=== PATIENT | male | born 1995 | race American Indian/Alaskan Native ===

== ENCOUNTER 2017-02-13 13:33 | Emergency (ER) | payer MEDICAID, OTHER ==
[2017-02-13 13:58] VITALS: BP 146/93
--- NOTE | 2017-02-13 14:24 | EDM.PDOC ---
[id number] 4d BLADDER INFECTION KIDNEY STONES Time Seen by Provider: 02/13/17 14:00 Source of Information: Reports: Patient, Family History Limitations: Reports: No limitations - History of Present Illness INITIAL COMMENTS - FREE TEXT/NARRATIVE: 21-year-old male has generalized malaise, back pain, and nausea for the past 2- 3 days. He was in the clinic yesterday and was worked up and everything was negative but his mom thinks he's a little worse today so brought him in. He looks fine. Left Flank Pain Score (Numeric/FACES): 7 - Related Data Allergies Allergy/AdvReac Type Severity Reaction Status Date / Time amoxicillin [Amoxicillin] Allergy Rash Verified 02/13/17 13:58 Home Meds: Home Meds Esomeprazole Magnesium [Nexium] 20 mg PO DAILY 06/30/15 [History] Past Medical History Gastrointestinal History: Reports: GERD Genitourinary History: Reports: Renal calculus Other Musculoskeletal History: LEG,SKULL,ARM,COLAR BONE,FINGERS,TOES, femur Neurological History: Reports: Migraines Psychiatric History: Reports: Anxiety, Depression Other Dermatologic History: acne - Past Surgical History GI Surgical History: Reports: Appendectomy Musculoskeletal Surgical History: Reports: Other (see below) Other Musculoskeletal Surgeries/Procedures:: femur repair Social & Family History - Tobacco Use Smoking Status *Q: Never Smoker Years of Tobacco use: 1 Used Tobacco, but Quit: No Second Hand Smoke Exposure: No - Alcohol Use Days Per Week of Alcohol Use: 0 - Recreational Drug Use Recreational Drug Use: No ED ROS GENERAL - Review of Systems Review Of Systems: See Below Constitutional: Reports: malaise. Denies: fever, chills HEENT: Reports: No symptoms Respiratory: Denies: Shortness of Breath Cardiovascular: Denies: Chest pain GI/Abdominal: Reports: Abdominal pain, Diarrhea, Nausea : Reports: flank pain Skin: Reports: no symptoms Neurological: Reports: No Symptoms Psychiatric: Reports: No symptoms ED EXAM, GENERAL - Physical Exam Exam: See Below Exam Limited By: No limitations General Appearance: alert, no apparent distress Eye Exam: bilateral eye: normal inspection Head: atraumatic Respiratory/Chest: no respiratory distress, lungs clear Cardiovascular: regular rate, rhythm GI/Abdominal: Soft, Tender (Reaccessed some tenderness to palpation along the left abdomen but no guarding or rebound) Back Exam: CVA tenderness (L) (A small amount of palpation tenderness to the left CVA and paraspinous area). No: CVA tenderness (R) Neurological: alert, oriented Psychiatric: normal affect, normal mood Skin Exam: Warm, Dry Course - Vital Signs Last Recorded V/S: Last Vital Signs Temp 97.3 F 02/13/17 13:57 Pulse 71 02/13/17 13:57 Resp 16 02/13/17 13:57 BP 146/93 H 02/13/17 13:57 Pulse Ox 97 02/13/17 13:57 - Re-Assessments/Exams Free Text/Narrative Re-Assessment/Exam: 02/13/17 14:39 I reviewed all his clinic labs from yesterday including a urine, CBC and BMP were all normal. We did run a CT of his abdomen and pelvis with no contrast and it was normal as well. Patient was reassured Departure - Departure Time of Disposition: 15:26 Disposition: Home, Self-Care 01 Condition: good Clinical Impression: Left flank pain, Abdominal pain of unknown cause - Discharge Information Instructions: Flank Pain, Llpa-se-Awzz Referrals: Luis Kelley MD [Primary Care Provider] - Forms: ED Department Discharge Care Plan Goals: Increase diet and activity as tolerated. Ibuprofen or naproxen should help. Return if worsening such as fever or increased pain.
--- NOTE | 2017-02-13 14:36 | CT ---
Abdomen pelvis CT. History: Left flank pain. Technique: Unenhanced axial images were obtained from the lung bases extending through the abdomen a nd pelvis. Coronal images were reconstructed. Total DLP: 741 Comparison: March 2016. Findings: The study is limited due to the lack of contrast. There is a nonobstructing 2 mm stone in the superior pole of the left kidney. A 2 mm stone of the lo wer pole left kidney is no longer demonstrated. There is no hydronephrosis or hydroureter. The right kidney is unremarkable. There appears to be uniform thickening of the bladder wall. The bladder is not distended. The lower lung gonsales are unremarkable. The liver, gallbladder, pancreas, spleen are unremarkable. T here is no large or small bowel distention. The skeletal structures are unremarkable. Impression: 1. Nonobstructing stone superior pole left kidney. 2. The bladder lopes appear thickened. Recommend correlation for cystitis. Underdistention of the bl adder may also account for the finding.
== END 2017-02-13 15:00 | disposition home or self-care (01) ==
LOC: JP.ED 13:33
DX: R10.9 Unspecified abdominal pain (principal); K21.9 Gastro-esophageal reflux disease without esophagitis; F41.9 Anxiety disorder, unspecified; F32.9 Major depressive disorder, single episode, unspecified; G43.909 Migraine, unspecified, not intractable, without status migrainosus; Z90.49 Acquired absence of other specified parts of digestive tract; Z88.1 Allergy status to other antibiotic agents
CPT/HCPCS: 74176; 74176-26; 99284-25

== ENCOUNTER 2017-02-15 06:51 | Day surgery (SDC) | payer MEDICAID, OTHER ==
[2017-02-15] MEDS ORDERED: Glycopyrrolate 0.2 MG/ML 2 ML SYRINGE IVPUSH ONE (07:30)
[2017-02-15] MEDS ORDERED: Dextrose 5%-Lactated Ringers 1,000 ML IV SCH (07:30)
[2017-02-15] MEDS ORDERED: fentaNYL 100 MCG/2 ML SDV ONE (08:13)
[2017-02-15] MEDS ORDERED: Midazolam 1 MG/ML 2 ML SDV ONE (08:13)
[2017-02-15] MEDS ORDERED: Propofol 200 MG/20 ML SDV ONE (08:13)
[2017-02-15] MEDS ORDERED: Ondansetron 4 MG/2 ML SDV ONE (08:15)
[2017-02-15] MEDS ORDERED: Pantoprazole 40 MG Vial IVPUSH ONE (08:50)
[2017-02-15 09:53] VITALS: BP 121/60
--- NOTE | 2017-02-18 16:39 | OR ---
DATE OF PROCEDURE: 02/15/2017 PREOPERATIVE DIAGNOSIS: Upper abdominal pain. POSTOPERATIVE DIAGNOSES: Upper abdominal pain with some mild focal pre-pyloric gastritis. PROCEDURE: Upper gastrointestinal endoscopy with antral biopsies for CLOtest. ANESTHESIA: IV sedation. INDICATIONS FOR PROCEDURE: This is a 21-year-old presenting with some ongoing upper abdominal pain, it appears to have increased somewhat after eating. The pain is in the upper abdomen and it also radiates to the back to a significant degree. He has been on Nexium 40 mg a day. The plan is to proceed with upper GI endoscopy with biopsies as indicated. Potential risks including bleeding and perforation were discussed, and the patient wishes to proceed. DETAILS OF PROCEDURE: The patient was taken to the operating room and placed in left lateral decubitus position. IV sedation was administered, after which the upper GI endoscope was passed orally through the length of the esophagus, into the stomach with retroflexion view of the fundus, thereafter through the pyloric channel, and into the proximal duodenum. FINDINGS: Included normal hypopharynx, larynx, upper esophageal sphincters, and esophageal body. At the EG junction, there was no significant inflammation or hiatal hernia. The proximal stomach was unremarkable. There was some patchy reddened areas in the pre-pyloric area without erosions or ulcers. The pyloric channel, duodenum, and the junction of the third and fourth portions were unremarkable. The scope was then withdrawn. The biopsy was obtained from the antrum and sent for CLOtest for Helicobacter pylori. Minimal bleeding from the biopsy site was seen and the procedure was then concluded. The patient will be given some additional Protonix 40 mg in the PAR. He will otherwise continue the Nexium 40 mg a day. If the CLOtest is positive, we will treat him with one of the anti Helicobacter pylori regimens, otherwise with radiation to the back and relatively minimal findings on upper endoscopy, we will obtain a CCK-stimulated HIDA scan on Saturday to look at the gallbladder function. We will see him immediately after the HIDA scan is completed this coming Saturday. Giuseppe Pizarro MD /[id number]
== END 2017-02-15 10:00 | disposition home or self-care (01) ==
LOC: JP.SDS 06:51
PROVIDERS: ATTEND Surgery
DX: K29.60 Other gastritis without bleeding (principal); Z88.1 Allergy status to other antibiotic agents; K21.9 Gastro-esophageal reflux disease without esophagitis
CPT/HCPCS: 43239; 87081; C9113; J2250; J2405; J2704; J3010; J7042

== ENCOUNTER 2017-02-19 09:49 | Day surgery (SDC) | payer MEDICAID, OTHER ==
[~2017-02-19 09:49] MED LIST: Bupivacaine 0.5%/EPINEPHrine 1:200,000 50 ML MDV ONE
[2017-02-19] MEDS: Dextrose 5%-Lactated Ringers 1,000 ML IV SCH ×2 (10:29→14:08)
[2017-02-19] MEDS ORDERED: HYDROmorphone/Normal Saline 15 MG/30 ML PCA IV PRN (11:12)
[2017-02-19] MEDS ORDERED: Naloxone 0.4 MG/ML SDV IVPUSH PRN (11:12)
[2017-02-19] MEDS ORDERED: fentaNYL 250 MCG/5 ML SDV ONE ×2 (12:36→13:17)
[2017-02-19] MEDS ORDERED: Dexamethasone 4 MG/ML SDV ONE (12:37)
[2017-02-19] MEDS ORDERED: Ondansetron 4 MG/2 ML SDV ONE (12:37)
[2017-02-19] MEDS ORDERED: Rocuronium 50 MG/5 ML Vial ONE (12:37)
[2017-02-19] MEDS ORDERED: Succinylcholine/Normal Saline 200 MG/10 ML Syringe ONE (12:37)
[2017-02-19] MEDS ORDERED: Neostigmine Methylsulfate 1 MG/ML 5 ML Syringe ONE (12:37)
[2017-02-19] MEDS ORDERED: Propofol 200 MG/20 ML SDV ONE (12:37)
[2017-02-19] MEDS: cefOXitin 2 GM in Sodium Chloride 0.9% 50 ML IV ONE ×2 (12:49→13:58)
[2017-02-19] MEDS ORDERED: Dextrose 5%-Lactated Ringers 1,000 ML IV SCH (15:00)
[2017-02-19] MEDS ORDERED: Acetaminophen/HYDROcodone 325-5 MG Tab PO PRN (16:00)
[2017-02-19] MEDS ORDERED: Pantoprazole 40 MG Vial IVPUSH SCH (16:00)
[2017-02-19] MEDS ORDERED: Ondansetron 4 MG/2 ML SDV IVPUSH PRN (16:00)
[2017-02-19] MEDS: cefOXitin 2 GM in Sodium Chloride 0.9% 50 ML IV SCH ×2 (18:02→23:52)
[2017-02-19] MEDS ORDERED: diphenhydrAMINE 25 MG Cap PO PRN (20:22)
[2017-02-20] MEDS ORDERED: HYDROmorphone 1 MG/ML Syringe IVPUSH ONE (01:30)
[2017-02-20] MEDS ORDERED: Acetaminophen/oxyCODONE 325-5 MG Tab PO PRN (01:31)
[2017-02-20] MEDS ORDERED: HYDROmorphone 1 MG/ML Syringe ONE (01:42)
[2017-02-20] MEDS: Acetaminophen/oxyCODONE 325-5 MG Tab PO PRN ×3 (01:46→09:32)
[2017-02-20] MEDS: cefOXitin 2 GM in Sodium Chloride 0.9% 50 ML IV SCH (05:59)
[2017-02-20 07:39] VITALS: BP 120/61
[2017-02-20] MEDS ORDERED: TRUVADA PO SCH (09:00)
[2017-02-20] MEDS ORDERED: Ondansetron 4 MG Tab.DIS PO ONE (11:03)
--- NOTE | 2017-02-21 15:30 | DISCH ---
ADMISSION DIAGNOSES: 1. Abdominal pain. 2. Biliary dyskinesia. DISCHARGE DIAGNOSES: Status post laparoscopic cholecystectomy. HISTORY: Nicho Villar is a 21-year-old male who presented to the emergency room with abdominal pain. After preoperative evaluation and discussion of possible risks and possible complications, he wished to proceed with surgical procedure. HOSPITAL COURSE: Nicho had his surgery on 02/19/2017. He had no operative complications. On postop day #1, his activity was good, his pain was well managed, and he was able to be discharged to home. PHYSICAL EXAMINATION: GENERAL: Nicho Villar is a 21-year-old male. VITAL SIGNS: Stable. HEENT: Negative. NECK: Supple. HEART: Regular rate and rhythm. LUNGS: Clear. ABDOMEN: Dressings dry and intact. Abdominal binder is on. EXTREMITIES: Without peripheral edema. DISPOSITION: Discharged to home. CONDITION: Stable and improving. FOLLOWUP: With Malgorzata Orozco PA-C, on 02/26/2017 at 10:00 am. HOME MEDICATIONS: Percocet 5/325 mg 1 to 2 every 4 hours p.r.n. pain, #30. To continue taking Tylenol 650 mg q.6 hours p.r.n. lesser pain, Truvada 200 mg/300 mg one tablet daily, and Nexium 40 mg oral daily. DISCHARGE DIET: Usual diet as tolerated. Drink 8 to 10 glasses of water a day. ACTIVITY: No lifting greater than 10 pounds for 2 weeks. Driving after discharge; do not drive while on pain medication. May shower. DISCHARGE INSTRUCTIONS: Notify provider if any fever, increased pain, nausea, or vomiting. Wound incision care, keep site clean and dry. Wear abdominal binder for 2 weeks and then as tolerated. Special instruction, use incentive spirometer 10 times every hour while awake for 2 weeks.
--- NOTE | 2017-02-25 14:17 | OR ---
DATE OF PROCEDURE: 02/19/2017 PREOPERATIVE DIAGNOSIS: Biliary dyskinesia. POSTOPERATIVE DIAGNOSES: 1. Biliary dyskinesia. 2. Umbilical hernia. OPERATIVE PROCEDURE: 1. Laparoscopic cholecystectomy (50843). 2. Laparoscopic repair of umbilical hernia (74272). ANESTHESIA: General. INDICATION FOR PROCEDURE: A 21-year-old presenting here with some ongoing upper abdominal pain and nausea. He earlier underwent an upper endoscopy, which showed some quite minor gastritis and therefore, he underwent a CCK-stimulated HIDA scan. The CCK injection caused quite precise reproduction of his discomfort and nausea and therefore, he is to undergo a cholecystectomy at this time. Potential risks of the procedure were reviewed with the patient, including bleeding, infection, injury to underlying viscera, and possibility of persistent symptoms postoperatively were all reviewed, and the patient wishes to proceed. DETAILS OF PROCEDURE: The patient was taken to the operating room and placed in a supine position. After general endotracheal anesthesia was induced, the abdomen was prepped and draped. A transverse epigastric incision was made and the peritoneal cavity entered under direct vision with an Optiview trocar inflated to 15 mmHg pressure with CO2. Laparoscope was then reinserted. No underlying trocar insertion site injuries were seen. As one peered down toward the umbilicus, the patient was noted to have a small umbilical hernia. A transverse infraumbilical incision was made and camera port 12-mm trocar was placed through the midportion of the hernia, which measured about 1 cm in diameter. A 5-mm right abdominal trocar was then also placed and the upper abdomen was then examined. The patient noted to have a distended and edematous gallbladder with edema particularly to be noted around the area of the cystohepatic triangle and gallbladder neck as one retracted this anteriorly and laterally dissection began at the level of the gallbladder neck with Harmonic scalpel, then carried around the gallbladder neck and cystic duct junction. Once that area was well-delineated as well as adjacent cystic artery, both structures were clipped 3 times proximally and once distally at the gallbladder and cystic duct junction and artery were divided. The gallbladder was then dissected off the gallbladder bed using Harmonic scalpel and delivered through the upper midline port. The gallbladder was noted to have a mucosal cholesterolosis as well as some fine granules within the gallbladder bile. The dissection was inspected and no problems were noted. The patient was felt not to need a drain. The camera was brought back up to the epigastric site and after removal of the trocar through the hernia at the umbilicus, this was then closed with a series of 0 Vicryl stitch. Once these were in place, the remaining trocars were removed. The peritoneal cavity deflated and the umbilical hernia repaired six stitches were then tied, which resolved this satisfactorily. The patient had no muscular defect at the gastric site, so a stitch was not required at the fascia level and the skin at each incision closed with 5-0 Vicryl skin stitch. Dressing was applied. The patient was taken to the recovery room in satisfactory condition. Giuseppe Pizarro MD /[id number]
== END 2017-02-20 11:25 | disposition home or self-care (01) ==
LOC: JP.SDS 09:49 → UNDOADMIN 09:49 → JP.MS 09:49 → EDSTATUS 11:00 → JP.2SS 14:30 → JP.MS 14:30 → JP.2SS 14:30 → UNDODISIN 02-20 11:20 → JP.SDS 02-20 11:25
PROVIDERS: ATTEND Surgery
DX: K81.1 Chronic cholecystitis (principal); K21.9 Gastro-esophageal reflux disease without esophagitis; K42.9 Umbilical hernia without obstruction or gangrene; G43.909 Migraine, unspecified, not intractable, without status migrainosus; F41.9 Anxiety disorder, unspecified; F32.9 Major depressive disorder, single episode, unspecified; Z90.49 Acquired absence of other specified parts of digestive tract; Z88.0 Allergy status to penicillin; Z87.442 Personal history of urinary calculi; Z79.899 Other long term (current) drug therapy; Z98.890 Other specified postprocedural states
CPT/HCPCS: 36415; 47562; 49652; 82247; 84075; 85027; 88304; 94762; A9270; C9113; J0694; J1100; J1170; J2405; J2704; J3010; J7042; J7050

== ENCOUNTER 2017-02-24 18:55 | Emergency (ER) | payer MEDICAID, OTHER ==
[2017-02-24 19:29] VITALS: BP 137/81
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
== END 2017-02-24 19:56 | disposition home or self-care (01) ==
LOC: JP.ED 18:55
DX: G89.18 Other acute postprocedural pain (principal); H54.7 Unspecified visual loss; J45.909 Unspecified asthma, uncomplicated; Z90.49 Acquired absence of other specified parts of digestive tract; Z79.899 Other long term (current) drug therapy; Z88.1 Allergy status to other antibiotic agents
CPT/HCPCS: 99283

== ENCOUNTER 2017-05-11 11:35 | Emergency (ER) | payer MEDICAID, OTHER ==
[2017-05-11 12:05] VITALS: BP 156/84
[2017-05-11] MEDS ORDERED: Bacitracin Oint 1 GM U/D Packet TOP ONE (12:16)
--- NOTE | 2017-05-11 12:16 | EDM.PDOC ---
[id number] 4d CUT LEFT MIDDLE FINGER Time Seen by Provider: 05/11/17 12:00 Source of Information: Reports: Patient History Limitations: Reports: No Limitations - History of Present Illness INITIAL COMMENTS - FREE TEXT/NARRATIVE: 21-year-old male cut his left middle finger while cutting an onion. Onset: Today Duration: Hour(s): (Within the last hour and a half) Severity: Mild - Related Data Allergies Allergy/AdvReac Type Severity Reaction Status Date / Time amoxicillin [Amoxicillin] Allergy Rash Verified 05/11/17 11:57 Home Meds: Home Meds Esomeprazole Magnesium [Nexium] 40 mg PO DAILY 06/30/15 [History] Past Medical History HEENT History: Reports: Impaired Vision Respiratory History: Reports: Asthma Gastrointestinal History: Reports: Chronic Diarrhea, GERD Genitourinary History: Reports: Renal Calculus Musculoskeletal History: Reports: Fracture Other Musculoskeletal History: LEG,SKULL,ARM,COLAR BONE,FINGERS,TOES, femur Neurological History: Reports: Concussion, Migraines Psychiatric History: Reports: Anxiety, Depression Dermatologic History: Reports: Other (See Below) Other Dermatologic History: acne - Infectious Disease History Infectious Disease History: Reports: Chicken Pox - Past Surgical History HEENT Surgical History: Reports: Adenoidectomy, Tonsillectomy Respiratory Surgical History: Reports: None GI Surgical History: Reports: Cholecystectomy, EGD, Hernia Repair/Other Male Surgical History: Reports: None Neurological Surgical History: Reports: None Musculoskeletal Surgical History: Reports: Other (See Below) Other Musculoskeletal Surgeries/Procedures:: Reset femur Dermatological Surgical History: Reports: None Social & Family History - Tobacco Use Smoking Status *Q: Never Smoker Years of Tobacco use: 1 Packs/Tins Daily: 1 Used Tobacco, but Quit: Yes Month Tobacco Last Used: May Second Hand Smoke Exposure: No - Caffeine Use Caffeine Use: Reports: Coffee, Energy Drinks, Soda - Alcohol Use Days Per Week of Alcohol Use: 0 - Recreational Drug Use Recreational Drug Use: No ED ROS GENERAL - Review of Systems Review Of Systems: See Below Constitutional: Denies: Fever, Chills Respiratory: Denies: Shortness of Breath GI/Abdominal: Denies: Nausea, Vomiting ED EXAM, SKIN/RASH Exam: See Below Exam Limited By: No Limitations General Appearance: Alert, No Apparent Distress Respiratory/Chest: No Respiratory Distress Extremities: Other (Exam is otherwise limited to the left hand. The patient has a small avulsion/laceration of the radial side of the middle finger distally. There is a small piece of nail that is absent as well. The wound is shallow in no repair is necessary) Course - Vital Signs Last Recorded V/S: Last Vital Signs Temp 96.8 F 05/11/17 12:02 Pulse 65 05/11/17 12:02 Resp 14 05/11/17 12:02 BP 156/84 H 05/11/17 12:02 Pulse Ox 98 05/11/17 12:02 - Orders/Labs/Meds Meds: Medications Discontinued Medications Generic Name Dose Route Start Last Admin Trade Name Freq PRN Reason Stop Dose Admin Bacitracin 1 dose 05/11/17 12:16 05/11/17 12:27 Bacitracin Oint 1 Gm TOP 05/11/17 12:17 1 dose ONETIME ONE Administration - Re-Assessments/Exams Free Text/Narrative Re-Assessment/Exam: 05/11/17 12:14 The wound was covered with bacitracin, bandaged, and a small protective finger splint was supplied. Patient is sleeping wound clean while healing. Departure - Departure Time of Disposition: 12:27 Disposition: Home, Self-Care 01 Condition: Good Clinical Impression: Laceration of finger of left hand Qualifiers: Encounter type: initial encounter Finger: middle finger Damage to nail status: with damage Foreign body presence: without foreign body Qualified Code(s): S61.313A - Laceration without foreign body of left middle finger with damage to nail, initial encounter - Discharge Information Instructions: Laceration Care, Adult Referrals: Luis Kelley MD [Primary Care Provider] - Forms: ED Department Discharge Care Plan Goals: Keep wound covered and clean while healing. Wear splint for protection. Recheck if concerns of infection or not healing satisfactorily.
== END 2017-05-11 12:27 | disposition home or self-care (01) ==
LOC: JP.ED 11:35
DX: S61.313A Laceration without foreign body of left middle finger with damage to nail, initial encounter (principal); J45.909 Unspecified asthma, uncomplicated; K21.9 Gastro-esophageal reflux disease without esophagitis; F41.9 Anxiety disorder, unspecified; F32.9 Major depressive disorder, single episode, unspecified; Z90.49 Acquired absence of other specified parts of digestive tract; Z98.890 Other specified postprocedural states; Z88.1 Allergy status to other antibiotic agents; Z79.899 Other long term (current) drug therapy; W45.8XXA Other foreign body or object entering through skin, initial encounter
CPT/HCPCS: 99283

== ENCOUNTER 2020-05-01 20:08 | Emergency (ER) | payer BC, MEDICAID ==
--- NOTE | 2020-05-01 20:39 | EDM.PDOC ---
ED HPI GENERAL MEDICAL PROBLEM - General Chief Complaint: General Stated Complaint: MEDICAL [facility] Time Seen by Provider: 05/01/20 20:29 Source of Information: Reports: Patient, RN Notes Reviewed History Limitations: Reports: No Limitations - History of Present Illness INITIAL COMMENTS - FREE TEXT/NARRATIVE: 24-year-old gentleman presents emergency department today complaint of epigastric pain, he does have a history of a Camilla he has had difficulty with his Camilla, he has been dealing with epigastric pain for some time but however over the last couple days the pain has gotten significantly worse. He did have a panic attack earlier today but that now has resolved denies any nausea shortness of breath or chest pain Throat Pain Score (Numeric/FACES): 8 - Related Data Allergies Allergy/AdvReac Type Severity Reaction Status Date / Time amoxicillin [Amoxicillin] Allergy Rash Verified 05/11/17 11:57 clindamycin Allergy Diarrhea Verified 05/01/20 20:17 ketamine Allergy Hallucinati Verified 05/01/20 20:17 ons Penicillins Allergy Hives Verified 05/01/20 20:17 Home Meds: Home Meds Famotidine [Pepcid] 40 mg PO DAILY 05/01/20 [History] LORazepam [Lorazepam] 0.5 mg PO DAILY 05/01/20 [History] Past Medical History HEENT History: Reports: Impaired Vision Respiratory History: Reports: Asthma Gastrointestinal History: Reports: Chronic Diarrhea, GERD, Hiatal Hernia Genitourinary History: Reports: Renal Calculus Musculoskeletal History: Reports: Fracture Other Musculoskeletal History: LEG,SKULL,ARM,COLAR BONE,FINGERS,TOES, femur Neurological History: Reports: Concussion, Migraines Psychiatric History: Reports: Anxiety, Depression, Suicide Attempt, Suicidal Ideation Dermatologic History: Reports: Other (See Below) Other Dermatologic History: acne - Infectious Disease History Infectious Disease History: Reports: Chicken Pox - Past Surgical History HEENT Surgical History: Reports: Adenoidectomy, Tonsillectomy Respiratory Surgical History: Reports: None GI Surgical History: Reports: Appendectomy, Cholecystectomy, EGD, Hernia, Abdominal, Hernia Repair/Other Male Surgical History: Reports: None Neurological Surgical History: Reports: None Musculoskeletal Surgical History: Reports: Other (See Below) Other Musculoskeletal Surgeries/Procedures:: Reset femur Dermatological Surgical History: Reports: None Social & Family History - Tobacco Use Smoking Status *Q: Current Every Day Smoker Years of Tobacco use: 1 Packs/Tins Daily: 1 Used Tobacco, but Quit: No - Caffeine Use Caffeine Use: Reports: Energy Drinks - Alcohol Use Days Per Week of Alcohol Use: 3 Number of Drinks Per Day: 5 Total Drinks Per Week: 15 Date of Last Drink: 05/01/20 Time of Last Drink: 12:00 - Recreational Drug Use Recreational Drug Use: Yes Drug Use in Last 12 Months: No Recreational Drug Type: Reports: Marijuana/Hashish ED ROS GENERAL - Review of Systems Review Of Systems: See Below Constitutional: Reports: No Symptoms HEENT: Reports: No Symptoms Respiratory: Reports: No Symptoms Cardiovascular: Reports: No Symptoms GI/Abdominal: Reports: Abdominal Pain (Epigastric region). Denies: Constipation, Diarrhea, Nausea, Vomiting : Reports: No Symptoms ED EXAM, GENERAL - Physical Exam Exam: See Below Exam Limited By: No Limitations General Appearance: Alert, WD/WN, No Apparent Distress Respiratory/Chest: No Respiratory Distress, Lungs Clear, Normal Breath Sounds, No Accessory Muscle Use, Chest Non-Tender Cardiovascular: Regular Rate, Rhythm, No Murmur GI/Abdominal: Soft, No Organomegaly, No Distention, No Abnormal Bruit, Tender (Tender epigastric region) Course - Vital Signs Last Recorded V/S: Last Vital Signs Temp 99.0 F 05/01/20 20:11 Pulse 90 05/01/20 20:11 Resp 25 H 05/01/20 20:11 BP 142/89 H 05/01/20 20:11 Pulse Ox 100 05/01/20 20:11 - Orders/Labs/Meds Orders: Active Orders 24 hr Category Date Time Status Abdomen 1V Upright [CR] Urgent Exams 05/01/20 20:36 Taken Labs: Laboratory Tests 05/01/20 05/01/20 05/01/20 Range/Units 20:50 20:50 20:50 WBC 6.8 (4.5-11.0) K/uL RBC 4.69 (4.30-5.90) M/uL Hgb 15.3 H (12.0-15.0) g/dL Hct 43.1 (40.0-54.0) % MCV 92 (80-98) fL MCH 33 H (27-31) pg MCHC 36 (32-36) % Plt Count 272 (150-400) K/uL Neut % (Auto) 59 (36-66) % Lymph % (Auto) 29 (24-44) % Haines % (Auto) 10 H (2-6) % Eos % (Auto) 1 L (2-4) % Baso % (Auto) 1 (0-1) % Sodium 144 (140-148) mmol/L Potassium 3.2 L (3.6-5.2) mmol/L Chloride 104 (100-108) mmol/L Carbon Dioxide 27 (21-32) mmol/L Anion Gap 16.2 H (5.0-14.0) mmol/L BUN 8 (7-18) mg/dL Creatinine 0.8 (0.8-1.3) mg/dL Est Cr Clr Drug Dosing 144.84 mL/min Estimated GFR (MDRD) > 60 (>60) Glucose 103 (74-106) mg/dL Lactic Acid 2.5 H (0.4-2.0) mmol/L Calcium 8.1 L (8.5-10.1) mg/dL Total Bilirubin 0.6 (0.2-1.0) mg/dL AST 38 H D (15-37) U/L ALT 46 (12-78) U/L Alkaline Phosphatase 69 (46-116) U/L Troponin I < 0.017 (0.000-0.056) ng/mL Total Protein 7.0 (6.4-8.2) g/dL Albumin 3.9 (3.4-5.0) g/dL Globulin 3.1 (2.3-3.5) g/dL Albumin/Globulin Ratio 1.3 (1.2-2.2) Lipase 54 L (73-393) U/L Meds: Medications Discontinued Medications Generic Name Dose Route Start Last Admin Trade Name Freq PRN Reason Stop Dose Admin Fentanyl 50 mcg 05/01/20 21:51 05/01/20 22:01 Sublimaze IM 05/01/20 21:52 50 mcg ONETIME ONE Administration Departure - Departure Time of Disposition: 22:55 Disposition: Home, Self-Care 01 Condition: Fair Clinical Impression: Abdominal pain Qualifiers: Abdominal location: epigastric Qualified Code(s): R10.13 - Epigastric pain - Discharge Information Instructions: Abdominal Pain, Adult Referrals: PCP,None [Primary Care Provider] - Forms: ED Department Discharge Additional Instructions: Please call the [facility] in the morning for an appointment time with Dr. Pizarro, call or return to the emergency department worsening of symptoms Sepsis Event Note (ED) - Evaluation Sepsis Screening Result: No Definite Risk - Focused Exam Vital Signs: Vital Signs Temp Pulse Resp BP Pulse Ox 05/01/20 20:11 99.0 F 90 25 H 142/89 H 100 - My Orders Last 24 Hours: My Active Orders 05/01/20 20:36 Abdomen 1V Upright [CR] Urgent - Assessment/Plan Last 24 Hours: My Active Orders 05/01/20 20:36 Abdomen 1V Upright [CR] Urgent Plan: Assessment Acuity = acute Site and laterality = epigastric abdominal pain Etiology = unknown Manifestations = none Location of injury = Home Lab values = CBC unremarkable potassium slightly low at 3.2 consistent hypokalemia lactic acid elevated 2.5 consistent lactic acidosis AST slightly elevated 38 consistent with elevated liver enzymes troponin is negative c abdominal x-ray reveals a large amount of gas nonspecific pattern official read radiologist pending Plan I did review lab work x-ray results with him I did recommend further evaluation with a CT scan and further work-up but he declined he would prefer consultation with general surgery Dr. Pizarro therefore set up that consultation he can call tomorrow morning for an appointment This note was dictated using [employer] voice recognition software please call with any questions on syntax or grammar.
[2020-05-01] MEDS ORDERED: fentaNYL 100 MCG/2 ML SDV IM ONE (21:51)
[2020-05-02 01:41] VITALS: BP 132/85; PULSE 86
--- NOTE | 2020-05-02 11:27 | CR ---
Abdomen 1V Upright CLINICAL HISTORY: Epigastric pain FINDINGS: There are scattered air-filled loops of small bowel in a nonacute pattern. No free air is seen. There are surgical clips in the right upper quadrant. IMPRESSION: Nonacute intestinal gas pattern
== END 2020-05-01 23:02 | disposition home or self-care (01) ==
LOC: JP.ED 20:08
DX: R10.13 Epigastric pain (principal); K21.9 Gastro-esophageal reflux disease without esophagitis; F41.9 Anxiety disorder, unspecified; F32.9 Major depressive disorder, single episode, unspecified; F17.210 Nicotine dependence, cigarettes, uncomplicated; Z88.1 Allergy status to other antibiotic agents; Z88.0 Allergy status to penicillin; Z88.4 Allergy status to anesthetic agent; Z79.899 Other long term (current) drug therapy; Z90.49 Acquired absence of other specified parts of digestive tract; Z98.890 Other specified postprocedural states
CPT/HCPCS: 36415; 74018; 80053; 83605; 83690; 84484; 85025; 96372; 99284; J3010

== ENCOUNTER 2020-05-13 07:28 | Day surgery (SDC) | payer BC ==
[~2020-05-13 07:28] MED LIST changes: -Bupivacaine 0.5%/EPINEPHrine 1:200,000 50 ML MDV ONE; +Midazolam 1 MG/ML 2 ML SDV ONE; +Propofol 200 MG/20 ML SDV ONE; +fentaNYL 100 MCG/2 ML SDV ONE
[2020-05-13] MEDS ORDERED: Dextrose 5%-Lactated Ringers 1,000 ML IV SCH (08:00)
[2020-05-13] MEDS ORDERED: Glycopyrrolate 0.2 MG/ML 2 ML SDV IVPUSH ONE (09:15)
[2020-05-13] MEDS ORDERED: Propofol 200 MG/20 ML SDV ONE (09:39)
[2020-05-13 10:57] VITALS: BP 136/85; PULSE 70
--- NOTE | 2020-05-19 13:53 | OR ---
DATE OF PROCEDURE: 05/13/2020 SURGEON: Giuseppe Pizarro MD PREOPERATIVE DIAGNOSIS: Status post Camilla fundoplication this past fall with no significant improvement in symptoms. POSTOPERATIVE DIAGNOSES: 1. Slipped Camilla fundoplication with recurrent gastroesophageal reflux disease. 2. Mild antral gastritis. OPERATIVE PROCEDURE: Esophagogastroduodenoscopy with: 1. Biopsy of esophagogastric junction for histologic evaluation. 2. Biopsies of antrum for CLOtest. ANESTHESIA: IV sedation. INDICATION FOR PROCEDURE: This is a 24-year-old status post Camilla fundoplication performed in [place] this past fall. After the fundoplication patient says he experienced no significant dysphagia or relief of his heartburn symptoms. Plan is to proceed with upper GI endoscopy for evaluation. Potential risks of the procedure including bleeding and perforation were discussed, and the patient wishes to proceed. DETAILS OF PROCEDURE: The patient was taken to the operating room and placed in a left lateral decubitus position. IV sedation was administered, after which the upper GI endoscope was passed orally through the esophagus and into the stomach, with retroflexion view of the fundus, and thereafter through the pyloric channel and into the proximal duodenum. Findings included normal hypopharynx, larynx, upper esophageal sphincter, esophageal body. At the EG junction the patient had an obvious recurrence of hiatal hernia with prolapse of some of the stomach up into the chest. It was also evident that, at the area around and just below the esophagogastric junction, there was no compression effect, i.e. the Camilla appeared to have slipped down well onto the stomach, resulting in no significant barrier to reflux. Within the remainder of the stomach, the patient was noted to have some mild patchy redness in the antrum, otherwise pyloric channel and visualized portions of the duodenum were unremarkable. At this point, biopsies were obtained from esophagogastric junction and sent for histologic evaluation, along with the antrum for CLOtest. No bleeding from biopsy sites was seen, and the procedure was then concluded. Discussed with the patient and mother postoperatively, the plan will be to proceed with a revision of the Camilla fundoplication next week. Giuseppe Pizarro MD /[id number]
== END 2020-05-13 10:58 | disposition home or self-care (01) ==
LOC: JP.SDS 07:28
PROVIDERS: ATTEND Surgery
DX: K29.50 Unspecified chronic gastritis without bleeding (principal); K21.0 Gastro-esophageal reflux disease with esophagitis; K95.09 Other complications of gastric band procedure; Z88.6 Allergy status to analgesic agent
CPT/HCPCS: 43239; 87081; 88305; J2250; J2704; J3010; J3490; J7121

== ENCOUNTER 2020-05-17 06:31 | Inpatient (IN) | payer BC ==
[2020-05-17] MEDS ORDERED: Acetaminophen 500 MG Tab PO ONE (07:15)
[2020-05-17] MEDS ORDERED: Glycopyrrolate 0.2 MG/ML 5 ML MDV ONE (07:26)
[2020-05-17] MEDS ORDERED: fentaNYL 250 MCG/5 ML SDV ONE ×2 (07:26→09:53)
[2020-05-17] MEDS ORDERED: Succinylcholine 200 MG/10 ML MDV ONE (07:26)
[2020-05-17] MEDS ORDERED: Rocuronium 50 MG/5 ML Vial ONE (07:26)
[2020-05-17] MEDS ORDERED: Ondansetron 4 MG/2 ML SDV ONE (07:26)
[2020-05-17] MEDS ORDERED: Dexamethasone 4 MG/ML SDV ONE (07:26)
[2020-05-17] MEDS ORDERED: Propofol 200 MG/20 ML SDV ONE (07:26)
[2020-05-17] MEDS ORDERED: Neostigmine Methylsulfate 1 MG/ML 5 ML Syringe ONE (07:26)
[2020-05-17] MEDS ORDERED: Dextrose 5%-Lactated Ringers 1,000 ML IV SCH (07:30)
[2020-05-17] MEDS ORDERED: LORazepam 2 MG/ML SDV IVPUSH ONE (08:00)
[2020-05-17] MEDS ORDERED: ceFAZolin 2 GM in Premix Bag 1 BAG IV ONE (08:30)
[2020-05-17] MEDS ORDERED: Lactated Ringers 1,000 ML ONE (10:32)
[2020-05-17] MEDS ORDERED: hydrOXYzine HCL 100 MG/2 ML SDV IM ONE (11:08)
[2020-05-17] MEDS ORDERED: fentaNYL 100 MCG/2 ML SDV IVPUSH ONE (11:30)
[2020-05-17] MEDS ORDERED: hydrOXYzine HCL 100 MG/2 ML SDV IM PRN (12:20)
[2020-05-17] MEDS ORDERED: Ondansetron 4 MG/2 ML SDV IVPUSH PRN (12:21)
[2020-05-17] MEDS: Metoclopramide 10 MG/2 ML SDV IVPUSH SCH ×2 (12:51→18:00)
[2020-05-17] MEDS: LORazepam 0.5 MG Tab PO PRN (12:51)
[2020-05-17] MEDS: Dextrose 5%-Lactated Ringers 1,000 ML IV SCH (12:58)
[2020-05-17] MEDS ORDERED: HYDROmorphone 0.5 MG/0.5 ML Syringe IVPUSH PRN (13:00)
[2020-05-17] MEDS ORDERED: HYDROmorphone 1 MG/ML Syringe IV PRN (13:00)
[2020-05-17] MEDS: oxyCODONE 5 MG Tab PO PRN ×2 (14:45→20:16)
[2020-05-17] MEDS: Pantoprazole 40 MG Vial IV SCH (14:46)
[2020-05-17] MEDS: ceFAZolin 2 GM in Premix Bag 1 BAG IV SCH (16:03)
[2020-05-18] MEDS: oxyCODONE 5 MG Tab PO PRN ×5 (00:27→21:48)
[2020-05-18] MEDS: ceFAZolin 2 GM in Premix Bag 1 BAG IV SCH ×3 (00:27→15:41)
[2020-05-18] MEDS: Metoclopramide 10 MG/2 ML SDV IVPUSH SCH ×4 (00:31→17:33)
[2020-05-18] MEDS: Dextrose 5%-Lactated Ringers 1,000 ML IV SCH ×3 (03:19→20:32)
[2020-05-18] MEDS ORDERED: Ondansetron 4 MG Tab.DIS PO PRN (07:05)
[2020-05-18] MEDS: hydrOXYzine HCl 25 MG Tab PO PRN ×3 (08:37→21:48)
--- NOTE | 2020-05-18 10:06 | PN ---
DATE OF SERVICE: 05/18/2020 SUBJECTIVE: Nicho is postop day #1. His pain has been controlled with IV Dilaudid x1 and no oxycodone. He has no questions or concerns. Denies any difficulty swallowing. He has been on a clear liquid diet. Remainder of review of systems negative for any pertinent positives and negatives. OBJECTIVE: GENERAL: Nicho Villar is a 24-year-old male. He is alert and orientated. Moves easily in bed. VITAL SIGNS: TPR at 0300; 97.4, 64, 16. Blood pressure 144/85. HEENT: Negative. NECK: Supple. HEART: Regular rate and rhythm. LUNGS: Clear. ABDOMEN: Dressings dry and intact. Abdominal binder is on. EXTREMITIES: Without peripheral edema. ASSESSMENT: Diagnostic laparoscopy with lysis of adhesions: 1. Redo Camilla fundoplication and repair of paraesophageal hernia with mesh. 2. Partial gastrectomy. POSTOPERATIVE DIAGNOSES: 1. Recurrent paraesophageal hernia with slipped Camilla fundoplication. 2. Deserosalized portion of the stomach, status post takedown of previous fundoplication. Date of Surgery: 05/17/2020. Surgeon: Giuseppe Pizarro MD. PLAN: 1. Full-liquid diet. 2. Dressing off, may shower. 3. Decrease IV to 100 mL per hour. 4. Referral to dietitian for instructions on full-liquid diet post Camilla. 5. We will evaluate p.r.n. or in a.m. 6. Plan discharge in a.m. Malgorzata Orozco PA-C /[id number]
[2020-05-18] MEDS: Pantoprazole 40 MG Vial IV SCH (13:45)
[2020-05-18] MEDS: LORazepam 0.5 MG Tab PO PRN (21:48)
[2020-05-19] MEDS: ceFAZolin 2 GM in Premix Bag 1 BAG IV SCH (00:13)
[2020-05-19] MEDS: Metoclopramide 10 MG/2 ML SDV IVPUSH SCH ×2 (00:16→07:03)
[2020-05-19] MEDS: oxyCODONE 5 MG Tab PO PRN ×2 (02:42→07:03)
[2020-05-19 02:45] VITALS: BP 142/90; PULSE 68
--- NOTE | 2020-05-19 07:54 | PCM.SN.2 ---
- Free Text/Narrative Note: 05/17/2020 Nicho Villar is a 24 year old male who had an exam and physical at his ED Visit on 05/01/2020. His History and Physical were reviewed and patient was examined prior to surgical procedure and there was no change that occurred in patient's condition. Nicho is cleared for General Anesthesia. After preoperative evaluation and discussion of possible risks and benefits patient wishes to proceed with surgical procedure. Malgorzata Centeno 05/17/2020
--- NOTE | 2020-05-19 13:16 | DISCH ---
ADMISSION DIAGNOSES: 1. Gastroesophageal reflux disease refractory to medical management and previous laparoscopic Camilla. 2. Abdominal pain. 3. Generalized anxiety disorder. 4. Gastroesophageal reflux disease. 5. Attention deficit disorder. DISCHARGE DIAGNOSES: Diagnostic laparoscopy with lysis of adhesions: 1. Redo Camilla fundoplication and repair of paraesophageal hernia with mesh. 2. Partial gastrectomy. POSTOPERATIVE DIAGNOSES: 1. Recurrent paraesophageal hernia with slipped Camilla fundoplication. 2. Deserosalized portion of the stomach, status post takedown of previous fundoplication. Date of surgery, 05/17/2020. Surgeon, Giuseppe Pizarro MD. HISTORY: Nicho Villar is a 24-year-old male, who had a previous Camilla fundoplication and return of symptoms. After preoperative evaluation and discussion of possible risks and possible complications, he wished to proceed with surgical procedure. HOSPITAL COURSE: Nicho had his surgery on 05/17/2020. He had no operative complications. On postoperative day #1, he was started on a full liquid diet. He received dietary instruction. On postoperative day 2, he is able to be discharged to home. Pain was controlled. Activity was good. Vital signs stable. Oral intake adequate, and he received adequate dietary instruction. PHYSICAL EXAMINATION: GENERAL: Nicho is a 24-year-old male. VITAL SIGNS: Height is 5 feet 10 inches, weight is 188 pounds. TPR at 0244, 97.9, 68, 16, blood pressure 142/90. HEENT: Negative. NECK: Supple. HEART: Regular rate and rhythm. LUNGS: Clear. ABDOMEN: Incisions look good. Abdominal binder is on. EXTREMITIES: Without peripheral edema. DISPOSITION: Discharged to home. CONDITION: Stable and improving. FOLLOWUP: Appointment with Giuseppe Pizarro MD, 06/01/2020 at 10:00 a.m. HOME MEDICATIONS: Oxycodone 5 mg every 6 hours p.r.n. pain, #28; Tylenol 325 mg, take 1 to 2 tablets every 4 hours p.r.n. pain. To resume home medications: Pepcid 40 mg daily p.r.n., lorazepam 0.5 mg oral daily p.r.n., Zofran 4 mg every 8 hours p.r.n. nausea. DIET: Full liquid diet until your appointment with Dr. Pizarro in approximately 2 weeks. Drink 8 to 10 glasses of water a day. ACTIVITY: No lifting greater than 10 pounds for 2 weeks. Walk 6 times daily inside your home. Driving: Do not drive for 1 week and while on pain medication. Shower/bathing: May shower. DISCHARGE INSTRUCTIONS: Notify provider if any fever, increased pain, nausea, or vomiting. Wound incision care: Keep site clean and dry. Wear abdominal binder for 2 weeks and then as tolerated. SPECIAL INSTRUCTION: Use incentive spirometer 10 times every hour while awake.
--- NOTE | 2020-05-23 09:55 | OR ---
DATE OF PROCEDURE: 05/17/2020 SURGEON: Giuseppe Pizarro MD PREOPERATIVE DIAGNOSIS: Gastroesophageal reflux disease refractory to medical management. POSTOPERATIVE DIAGNOSES: 1. Recurrent paraesophageal diaphragmatic hernia with slipped Camilla fundoplication. 2. Deserosalized portion of stomach status post takedown of previous fundoplication. OPERATIVE PROCEDURES: Diagnostic laparoscopy with lysis of adhesions and: 1. Redo Camilla fundoplication with repair of paraesophageal diaphragmatic hernia with mesh (84778). 2. Partial gastrectomy (41632). ANESTHESIA: General. FENDER MECHANIC APPRENTICE: Malgorzata Orozco PA-C INDICATIONS FOR PROCEDURE: A 24-year-old status post a Camilla fundoplication done in [place] last fall, presenting with ongoing continued reflux. Upper endoscopy showed no significant Camilla effect present and plan is to proceed with a redo Camilla fundoplication. Potential risks including bleeding, infection, injury to underlying viscera, problems with the fundoplication such as dysphagia, gas bloat syndrome, disorders of gastric emptying rate, as well as possibility of incomplete relief of reflux symptoms were all reviewed, and the patient wishes to proceed, and that a secondary procedure is somewhat less effective at times was reviewed with the patient as well. DETAILS OF PROCEDURE: The patient was taken to the operating room and placed in a supine position. After general endotracheal anesthesia was induced, the abdomen was prepped and draped. 15 cm inferior and 5 cm left of the xiphoid process, a transverse incision was made and the peritoneal cavity entered under direct vision with an Optiview trocar and inflated to 15 mmHg pressure with CO2. Bilateral subcostal transversus abdominis plane blocks were then placed and 4 additional trocars were placed across the upper and mid abdomen. Upon elevation of the liver, some minor adhesions were taken down. The patient was noted to have an obvious slipped Camilla with the previous fundoplication and this led way down onto the upper aspect of the stomach. There was significant paraesophageal hernia with prolapse of large tongue of omentum anterior to the course of the esophagus into the area of the hernia. This was reduced at this point and the dissection began with division of previous fundoplication, then allowing the fundoplication on portion of the stomach and both sides of the divided fundoplication was somewhat deserosalized and this segment of stomach was then resected. Resection of the area of the diaphragmatic hernia was then accomplished and once a nice retroesophageal window was established, the crural repair was accomplished with 0 Ethibond sutures reinforced with PTFE pledgets. Phasix ST mesh was then placed after cutting a segment of this in a horseshoe type configuration to fit over the crural repair and from there onto the adjacent crura to which it was fixed with titanium tacking screws. There were some additional attachments to the fundus to the posterior and highest short gastric vessels which were then taken down to allow mobility of the fundus. The fundus was then retrieved through the retroesophageal window. Anesthesia then passed the guidewire into the stomach orally, and over the guidewire, a 54-Cymraes dilator was placed. A 3-stitch 2 cm fundoplication was then accomplished. Each of the sutures included bites of the underlying esophagus and these sutures were 0 Ethibond sutures reinforced with PTFE pledgets. Once these were in place, sutures to the fundoplication and the diaphragm were then also placed with the same stitch pledget combination, and at that point, no further problems were noted. The dilator and wire were removed and fundoplication appeared to be satisfactory. At that point, the trocars were removed and peritoneal cavity deflated. Incisions were closed with some 4-0 Vicryl skin stitch. Then, the patient was taken to the recovery room in satisfactory condition. Physician assistant professor of physics, Malgorzata Orozco, played an essential role in assisting in this case, helping to position the patient, retract structures as needed, as well as suturing and cutting sutures when indicated. Her presence improved patient safety and decreased operative time. Giuseppe Pizarro MD /[id number]
== END 2020-05-19 09:35 | disposition home or self-care (01) | DRG 220 ==
LOC: JP.MS 06:31 → JP.SDS 06:32 → JP.MS 11:00 → EDSTATUS 13:15
PROVIDERS: ADMIT Surgery; ATTEND Surgery
PROC: 0DV44ZZ Restriction of Esophagogastric Junction, Percutaneous Endoscopic Approach (ICD-10-PCS; principal; 2020-05-17)
PROC: 0BUT4JZ Supplement Diaphragm with Synthetic Substitute, Percutaneous Endoscopic Approach (ICD-10-PCS; 2020-05-17)
PROC: 0DB64ZZ Excision of Stomach, Percutaneous Endoscopic Approach (ICD-10-PCS; 2020-05-17)
DX: K21.9 Gastro-esophageal reflux disease without esophagitis (principal); K44.9 Diaphragmatic hernia without obstruction or gangrene; E87.2 Acidosis; F41.1 Generalized anxiety disorder; F90.9 Attention-deficit hyperactivity disorder, unspecified type; J45.909 Unspecified asthma, uncomplicated; F32.9 Major depressive disorder, single episode, unspecified; F17.200 Nicotine dependence, unspecified, uncomplicated; Z88.0 Allergy status to penicillin; Z88.1 Allergy status to other antibiotic agents; Z88.8 Allergy status to other drugs, medicaments and biological substances; Z87.442 Personal history of urinary calculi; Z90.49 Acquired absence of other specified parts of digestive tract
CPT/HCPCS: 88305; 94762; A9270-GY; C1713; C1781; C9113; J0171; J0330; J0690; J1100; J1170; J2060; J2405; J2704; J2710; J2765; J2795; J3010; J3410; J3490; J7050; J7120; J7121

== ENCOUNTER 2021-02-21 06:20 | Emergency (ER) | payer BC ==
[2021-02-21] MEDS ORDERED: Ondansetron 4 MG Tab.DIS PO ONE ×2 (07:29→08:07)
[2021-02-21] MEDS ORDERED: LORazepam 1 MG Tab PO ONE ×2 (07:29→08:07)
--- NOTE | 2021-02-21 07:35 | EDM.PDOC ---
ED HPI GENERAL MEDICAL PROBLEM - General Chief Complaint: General Stated Complaint: new med light headed Time Seen by Provider: 02/21/21 07:30 Source of Information: Reports: Patient History Limitations: Reports: No Limitations - History of Present Illness INITIAL COMMENTS - FREE TEXT/NARRATIVE: pt arrived after taking his first dose of paxil and minipres. His anxiety has been very high. He has had alot of stress in his life. His mother has been in the hospital for a long time. His mother and father seperated. He is back at work at [employer]. Onset: Today, Other (pt has not been able to sleep all nite. He is near a major panic attack. He is feeling very nauseated. ) Duration: Hour(s): Location: Reports: Generalized Associated Symptoms: Reports: Other (pt is feeling very anxious. ) - Related Data Allergies Allergy/AdvReac Type Severity Reaction Status Date / Time amoxicillin [Amoxicillin] Allergy Rash Verified 02/21/21 06:39 Penicillins Allergy Hives Verified 02/21/21 06:39 clindamycin AdvReac Diarrhea Verified 02/21/21 06:39 ketamine AdvReac Hallucinati Verified 02/21/21 06:39 ons Home Meds: Home Meds LORazepam [Lorazepam] 0.5 mg PO DAILY 05/01/20 [History] PARoxetine [Paxil] 10 mg PO DAILY 02/21/21 [History] Prazosin [Minpress] 1 mg PO DAILY 02/21/21 [History] Past Medical History HEENT History: Reports: Impaired Vision Respiratory History: Reports: Asthma Gastrointestinal History: Reports: Cholelithiasis, Chronic Diarrhea, GERD, Hiatal Hernia Genitourinary History: Reports: Renal Calculus Musculoskeletal History: Reports: Fracture Other Musculoskeletal History: LEG,SKULL,ARM,COLAR BONE,FINGERS,TOES, femur Neurological History: Reports: Concussion, Migraines Psychiatric History: Reports: Anxiety, Depression, Suicide Attempt, Suicidal Ideation Dermatologic History: Reports: Other (See Below) Other Dermatologic History: acne - Infectious Disease History Infectious Disease History: Reports: Chicken Pox - Past Surgical History HEENT Surgical History: Reports: Adenoidectomy, Tonsillectomy, Other (See Below) Other HEENT Surgeries/Procedures: Jaw surg for tumor removal Respiratory Surgical History: Reports: None GI Surgical History: Reports: Appendectomy, Bariatric Procedure, Cholecystectomy, EGD, Hernia, Abdominal, Hernia Repair/Other, Camilla Fundoplication Male Surgical History: Reports: None Neurological Surgical History: Reports: None Musculoskeletal Surgical History: Reports: Other (See Below) Other Musculoskeletal Surgeries/Procedures:: Reset femur Dermatological Surgical History: Reports: None Social & Family History - Family History Family Medical History: No Pertinent Family History - Tobacco Use Tobacco Use Status *Q: Current Every Day Tobacco User Years of Tobacco use: 2 Packs/Tins Daily: 1 - Caffeine Use Caffeine Use: Reports: Energy Drinks - Alcohol Use Days Per Week of Alcohol Use: 7 Number of Drinks Per Day: 3 Total Drinks Per Week: 21 - Recreational Drug Use Recreational Drug Use: No ED ROS GENERAL - Review of Systems Review Of Systems: See Below Constitutional: Reports: No Symptoms HEENT: Reports: No Symptoms Respiratory: Reports: No Symptoms Cardiovascular: Reports: No Symptoms Endocrine: Reports: No Symptoms GI/Abdominal: Reports: No Symptoms : Reports: No Symptoms Musculoskeletal: Reports: No Symptoms Skin: Reports: No Symptoms Psychiatric: Reports: Anxiety, Depression ED EXAM, GENERAL - Physical Exam Exam: See Below Free Text/Narrative:: pt is nauseated and very anxious. he is not sleeping at nite. He is feeling very stressed. He is eating well and physically does not have any definite complaints. Exam Limited By: No Limitations General Appearance: Alert, Anxious Neurological: Alert, Oriented, Normal Cognition Psychiatric: Anxious, Other (pt is having a very difficult time to relax. He has not slept for 4 nights. He has been working alot of hours at [employer]. ) Course - Vital Signs Last Recorded V/S: Last Vital Signs Temp 35.6 C L 02/21/21 06:40 Pulse 74 02/21/21 08:12 Resp 12 02/21/21 08:12 BP 142/94 H 02/21/21 08:12 Pulse Ox 98 02/21/21 08:12 - Orders/Labs/Meds Labs: Laboratory Tests 02/21/21 02/21/21 Range/Units 07:46 07:46 WBC 7.4 (4.5-11.0) K/uL RBC 4.74 (4.30-5.90) M/uL Hgb 15.9 H (12.0-15.0) g/dL Hct 44.4 (40.0-54.0) % MCV 94 (80-98) fL MCH 34 H (27-31) pg MCHC 36 (32-36) % Plt Count 292 (150-400) K/uL Neut % (Auto) 75 H (36-66) % Lymph % (Auto) 12 L (24-44) % [place] % (Auto) 12 H (2-6) % Eos % (Auto) 0 L (2-4) % Baso % (Auto) 1 (0-1) % Sodium 139 L (140-148) mmol/L Potassium 2.7 L* (3.6-5.2) mmol/L Chloride 98 L (100-108) mmol/L Carbon Dioxide 27 (21-32) mmol/L Anion Gap 16.7 H (5.0-14.0) mmol/L BUN 5 L (7-18) mg/dL Creatinine 0.8 (0.8-1.3) mg/dL Est Cr Clr Drug Dosing 148.28 mL/min Estimated GFR (MDRD) > 60 (>60) Glucose 107 H (74-106) mg/dL Calcium 9.3 (8.5-10.1) mg/dL Total Bilirubin 1.9 H D (0.2-1.0) mg/dL AST 55 H (15-37) U/L ALT 61 (12-78) U/L Alkaline Phosphatase 82 (46-116) U/L Total Protein 7.1 (6.4-8.2) g/dL Albumin 3.9 (3.4-5.0) g/dL Globulin 3.2 (2.3-3.5) g/dL Albumin/Globulin Ratio 1.2 (1.2-2.2) TSH, Ultra Sensitive 1.538 (0.358-3.740) uIU/mL Meds: Medications Discontinued Medications Generic Name Dose Route Start Last Admin Trade Name Freq PRN Reason Stop Dose Admin Famotidine 20 mg 02/21/21 08:23 02/21/21 08:34 Famotidine 20 Mg Tab PO 02/21/21 08:24 20 mg ONETIME ONE Administration Lorazepam 1 mg 02/21/21 07:29 02/21/21 07:40 Lorazepam 1 Mg Tab PO 02/21/21 07:30 1 mg ONETIME ONE Administration Lorazepam 1 mg 02/21/21 08:07 02/21/21 08:12 Lorazepam 1 Mg Tab PO 02/21/21 08:08 1 mg ONETIME ONE Administration Ondansetron HCl 4 mg 02/21/21 07:29 02/21/21 07:40 Ondansetron 4 Mg Tab.Dis PO 02/21/21 07:30 4 mg ONETIME ONE Administration Ondansetron HCl 4 mg 02/21/21 08:07 02/21/21 08:12 Ondansetron 4 Mg Tab.Dis PO 02/21/21 08:08 4 mg ONETIME ONE Administration Potassium Chloride 20 meq 02/21/21 08:21 02/21/21 08:34 Potassium Chloride 10 Meq Cap.Er PO 02/21/21 08:22 20 meq ONETIME ONE Administration - Re-Assessments/Exams Free Text/Narrative Re-Assessment/Exam: 02/21/21 09:02 pt was given a total of 8 mg of zoforan, pepcid 20 mg. His nausea was better. He did receive a total of 2 mg of ativan . He did get relaxed enough that he felt like hecould go home and rest. He will not use the paxil o minipres again. Will place him on trazadone 50 mg and go to 100 mg if needed. Departure - Departure Time of Disposition: 08:52 Disposition: Home, Self-Care 01 Condition: Fair Clinical Impression: Anxiety, Medication adverse effect - Discharge Information Instructions: Managing Anxiety, Adult Referrals: PCP,None [Primary Care Provider] - Forms: ED Department Discharge Care Plan Goals: stop paxil and minipres. add traxadone 50mg hs and may increase to 100mg hs, atvan 1mg 1 tab q6h prn for anxiety #8 Pt needs to get involved with a counselor. He needs to keep his followup [facility]. Pt did have a low potassium-- high potassium foods, kcl20 meq 1 tab daily for 1 week. The trazadone should be taken 1 hour prior to going to bed. Sepsis Event Note (ED) - Evaluation Sepsis Screening Result: No Definite Risk - Focused Exam Vital Signs: Vital Signs Temp Pulse Resp BP Pulse Ox 02/21/21 08:12 74 12 142/94 H 98 02/21/21 07:41 86 12 146/109 H 99 05/18/21 06:40 35.6 C L 110 H 16 164/114 H 100
[2021-02-21 08:12] VITALS: BP 142/94; PULSE 74
[2021-02-21] MEDS ORDERED: Potassium Chloride 10 MEQ Cap.ER PO ONE (08:21)
[2021-02-21] MEDS ORDERED: Famotidine 20 MG Tab PO ONE (08:23)
== END 2021-02-21 09:10 | disposition home or self-care (01) ==
LOC: JP.ED 06:20
DX: F41.9 Anxiety disorder, unspecified (principal); T43.225A Adverse effect of selective serotonin reuptake inhibitors, initial encounter; T44.6X5A Adverse effect of alpha-adrenoreceptor antagonists, initial encounter; J45.909 Unspecified asthma, uncomplicated; Z88.0 Allergy status to penicillin; Z88.1 Allergy status to other antibiotic agents; Z88.4 Allergy status to anesthetic agent; Z72.0 Tobacco use
CPT/HCPCS: 36415; 80053; 84443; 85025; 99283; A9270

== ENCOUNTER 2021-05-17 08:21 | Emergency (ER) | payer BC, OTHER ==
[2021-05-17 08:36] VITALS: BP 152/94; PULSE 74
--- NOTE | 2021-05-17 08:57 | EDM.PDOC ---
ED HPI GENERAL MEDICAL PROBLEM - General Chief Complaint: Genitourinary Problem Stated Complaint: PASSING KIDNEY STONES Time Seen by Provider: 05/17/21 08:50 Source of Information: Reports: Patient, Family History Limitations: Reports: No Limitations - History of Present Illness INITIAL COMMENTS - FREE TEXT/NARRATIVE: 25-year-old male, in a monogamous relationship with another male, presents with 4 to 5 days of dysuria, left flank pain, and left abdominal pain. He was seen in the clinic yesterday and had a fairly good work-up including lab and urine, STD checks all have been negative to this point. He does have a history of renal stones 6 years ago. No fevers or chills. He had a long painful night last night, it seems somewhat better today. He is also complaining that he has some swelling of the head and base of the penis. No problems urinating other than some mild intermittent dysuria. Onset: Unknown/Unsure (Started sometime overnight on Saturday) Duration: Day(s): (Symptoms for 4 days) Location: Reports: Abdomen (Left flank area left abdomen and lower abdominal discomfort. Also irritation and swelling of the penis), Back Associated Symptoms: Reports: Malaise. Denies: Chest Pain, Fever/Chills, Loss of Appetite, Nausea/Vomiting, Shortness of Breath - Related Data Allergies Allergy/AdvReac Type Severity Reaction Status Date / Time amoxicillin [Amoxicillin] Allergy Rash Verified 05/17/21 08:42 Penicillins Allergy Hives Verified 05/17/21 08:42 clindamycin AdvReac Diarrhea Verified 05/17/21 08:42 ketamine AdvReac Hallucinati Verified 05/17/21 08:42 ons Home Meds: Home Meds LORazepam [Lorazepam] 0.5 mg PO DAILY 05/01/20 [History] Cyclobenzaprine [Flexeril] 10 mg PO TID 05/17/21 [History] Past Medical History HEENT History: Reports: Impaired Vision Respiratory History: Reports: Asthma Gastrointestinal History: Reports: Cholelithiasis, Chronic Diarrhea, GERD, Hia lydia Hernia Genitourinary History: Reports: Renal Calculus Musculoskeletal History: Reports: Fracture Other Musculoskeletal History: LEG,SKULL,ARM,COLAR BONE,FINGERS,TOES, femur Neurological History: Reports: Concussion, Migraines Psychiatric History: Reports: Anxiety, Depression, Suicide Attempt, Suicidal Ideation Dermatologic History: Reports: Other (See Below) Other Dermatologic History: acne - Infectious Disease History Infectious Disease History: Reports: Chicken Pox - Past Surgical History Head Surgeries/Procedures: Reports: None HEENT Surgical History: Reports: Adenoidectomy, Tonsillectomy, Other (See Below) Other HEENT Surgeries/Procedures: Jaw surg for tumor removal Respiratory Surgical History: Reports: None GI Surgical History: Reports: Appendectomy, Bariatric Procedure, Cholecystectomy, EGD, Hernia, Abdominal, Hernia Repair/Other, Camilla Fundoplication Male Surgical History: Reports: None Neurological Surgical History: Reports: None Musculoskeletal Surgical History: Reports: Other (See Below) Other Musculoskeletal Surgeries/Procedures:: Reset femur Dermatological Surgical History: Reports: None Social & Family History - Family History Family Medical History: No Pertinent Family History - Tobacco Use Second Hand Smoke Exposure: No - Caffeine Use Caffeine Use: Reports: Energy Drinks - Recreational Drug Use Recreational Drug Use: No ED ROS GENERAL - Review of Systems Review Of Systems: See Below Constitutional: Reports: Malaise. Denies: Fever, Chills HEENT: Reports: No Symptoms Respiratory: Denies: Shortness of Breath Cardiovascular: Denies: Chest Pain GI/Abdominal: Reports: Abdominal Pain. Denies: Constipation, Diarrhea, Nausea, Vomiting : Reports: Dysuria, Flank Pain (The left side), Urgency (Intermittent). Denies: Discharge Musculoskeletal: Reports: Back Pain (Hurt his back at work a couple weeks ago, slowly improving) Skin: Reports: No Symptoms ED EXAM, GENERAL - Physical Exam Exam: See Below Exam Limited By: No Limitations General Appearance: Alert, No Apparent Distress Eye Exam: Bilateral Eye: Normal Inspection Head: Atraumatic Neck: Supple, Non-Tender Respiratory/Chest: Lungs Clear GI/Abdominal: Soft, No Mass (Male) Exam: Other (There does appear to be a small amount of swelling and irritation at the urethral opening of the glans of the penis but no significant erythema or swelling of the glands. He also claims to have some swelling at the base of the penis but objectively I do not see it) Course - Vital Signs Last Recorded V/S: Last Vital Signs Temp 97.3 F 05/17/21 08:36 Pulse 74 05/17/21 08:36 Resp 16 05/17/21 08:36 BP 152/94 H 05/17/21 08:36 Pulse Ox 99 05/17/21 08:36 - Re-Assessments/Exams Free Text/Narrative Re-Assessment/Exam: 05/17/21 09:21 CT the abdomen and pelvis showed some chronic renal stones but nothing acute or obstructive. I will try a course of ciprofloxacin to treat urethritis until the rest of his labs returned from the clinic. He will take 500 mg twice daily for 5 days. He is also going to try some Pyridium for symptom control. Departure - Departure Time of Disposition: 09:30 Disposition: Home, Self-Care 01 Clinical Impression: Urethritis, Dysuria, Acute left flank pain - Discharge Information Instructions: Dysuria Referrals: PCP,None [Primary Care Provider] - Forms: ED Department Discharge Care Plan Goals: Take antibiotic twice daily for 5 days, stay hydrated, and try some [id number] Pyridium for bladder spasm. Consider rechecking in 2 to 3 days if not improving, or return anytime if worsening such as fever, increased pain or other concerns. Sepsis Event Note (ED) - Evaluation Sepsis Screening Result: No Definite Risk - Focused Exam Vital Signs: Vital Signs Temp Pulse Resp BP Pulse Ox 05/17/21 08:36 97.3 F 74 16 152/94 H 99 05/17/21 08:34 97.3 F 74 16 152/94 H 99
--- NOTE | 2021-05-17 09:44 | CT ---
Abdomen Pelvis wo Cont CLINICAL HISTORY: Left flank pain COMPARISON: Abdominal series 05/01/2020. TECHNIQUE: Axial tomographic images are obtained from the dome of the diaphragm to the pubic symphysis without IV contrast enhancement. No oral contrast was used. The dosage reduction and iterative reconstruction techniques employed. FINDINGS: The lung bases are clear. The liver shows no mass or biliary dilatation. The gallbladder has been removed. Patient has had prior gastric surgery, possibly a Camilla procedure. The spleen has a normal size and shape. The pancreas is free of mass or inflammatory change. The adrenal glands appear normal bilaterally. There are 3 punctate nonobstructing renal calculi in the lower pole of the left kidney. There is a single punctate renal calculus in the upper pole. There is no hydronephrosis. Ureters have a normal course and caliber. There are some scattered small calcifications in the pelvis. These appear to be vascular. There is some generalized thickening of the bladder wall. The aorta has a normal course and caliber. There is no suspicious retroperitoneal adenopathy. There are a few isolated diverticula without evidence of diverticulitis. Abdominal pelvic fat planes and low pelvic side lopes are well demarcated. The small intestinal configuration is nonacute. IMPRESSION: Scattered punctate nonobstructing left renal calculi Minimal diverticulosis without evidence of diverticulitis Nonacute intestinal configuration
== END 2021-05-17 09:30 | disposition home or self-care (01) ==
LOC: JP.ED 08:21
DX: N34.2 Other urethritis (principal); Z88.0 Allergy status to penicillin; Z88.1 Allergy status to other antibiotic agents; Z88.4 Allergy status to anesthetic agent; Z87.442 Personal history of urinary calculi
CPT/HCPCS: 74176; 74176-26; 99284-25